=== PATIENT | male | born 1980 | race Two or more races ===

== ENCOUNTER 2016-12-08 10:38 | Emergency (ER) | payer SELFPAY ==
[~2016-12-08] VITALS: Ht 170.2 cm; Wt 74.8 kg
[2016-12-08 10:50] VITALS: BP 132/76
[2016-12-08] MEDS ORDERED: Ketorolac 30mg Inj IV ONE (11:00)
--- NOTE | 2016-12-08 12:01 | Diagnostic Imaging Report ---
Indication: Chest pain Technique: PA and lateral views of the chest. Findings: Comparison: None The bones and extra pulmonary soft tissues, cardiomediastinal silhouette, pulmonary vasculature and parenchyma, and pleural surfaces are unremarkable. IMPRESSION: Negative PA and lateral chest radiographs
[2016-12-08 12:03] LABS: BASOPHILS % (AUTO) 1.6 % (0.0-2.0); EOSINOPHILS % (AUTO) 11.4 % (0.0-3.0); LYMPHOCYTES % (AUTO) 23.4 % (20.0-45.0); MEAN CORPUSCULAR HEMOGLOBIN 29.7 PG (27.0-31.0); MEAN CORPUSCULAR HGB CONC 32.8 G/DL (32.0-36.0); MEAN CORPUSCULAR VOLUME 91 FL (80-99); MEAN PLATELET VOLUME 9.7 FL (6.5-10.1); MONOCYTES % (AUTO) 7.4 % (1.0-10.0); NEUTROPHILS % (AUTO) 56.2 % (45.0-75.0); PLATELET COUNT 177 K/UL (150-450); RED BLOOD COUNT 5.85 M/UL (4.70-6.10); RED CELL DISTRIBUTION WIDTH 12.3 % (11.6-14.8); WHITE BLOOD COUNT 9.1 K/UL (4.8-10.8)
[2016-12-08 12:13] LABS: ALANINE AMINOTRANSFERASE 14 U/L (3-41); ALBUMIN/GLOBULIN RATIO 1.4 (1.0-2.7); ANION GAP 14 (5-15); ASPARTATE AMINO TRANSFERASE 17 U/L (5-40); CALCIUM 9.3 mg/dL (8.6-10.2); CARBON DIOXIDE 27 mEQ/L (20-30); CHLORIDE 97 mEQ/L (98-107); CREATININE 1.1 mg/dL (0.7-1.2); GLOMERULAR FILTRATION RATE > 60 mL/min (>60); HEMOLYSIS 11; POTASSIUM 4.4 mEQ/L (3.4-4.9); SODIUM 138 mEQ/L (135-145); TOTAL PROTEIN 7.1 g/dL (6.6-8.7)
[2016-12-08 12:14] LABS: TROPONIN I < 0.30 ng/mL (<=0.30)
[2016-12-08] MEDS ORDERED: NKM (12:14)
[2016-12-08 12:24] LABS: CKMB < 1.5 ng/mL (< 6.7)
[2016-12-08 13:00] VITALS: BP 128/66
[2016-12-08 13:15] LABS: APPEARANCE,URINE CLEAR; KETONES,URINE NEGATIVE (NEGATIVE); LEUKOCYTE ESTERASE ,URINE NEGATIVE (NEGATIVE); NITRITE,URINE NEGATIVE (NEGATIVE); PH,URINE 6 (4.5-8.0); PROTEIN,URINE NEGATIVE (NEGATIVE); UROBILINOGEN,URINE NORMAL MG/DL (0.0-1.0)
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
[2016-12-08] MEDS ORDERED: IBUPROFEN600 MG ORAL (14:33)
[2016-12-08] MEDS ORDERED: CYCLOBENZAPRINE10 MG ORAL (14:33)
[2016-12-08] MEDS ORDERED: ACETAMINOPHEN500 M3 ORAL (14:33)
[2016-12-08 14:50] VITALS: BP 131/78
--- NOTE | 2016-12-09 15:51 | Cardiology Report ---
APPROVED REPORT EKG Measurement Heart [id number] Normal sinus rhythm possible early repolarization
== END 2016-12-08 14:52 | disposition home or self-care (01) ==
LOC: EMR 11:35
DX: S20.219A Contusion of unspecified front wall of thorax, initial encounter (principal); V47.6XXA Car passenger injured in collision with fixed or stationary object in traffic accident, initial encounter; Y93.9 Activity, unspecified; Y92.411 Interstate highway as the place of occurrence of the external cause; M47.9 Spondylosis, unspecified
CPT/HCPCS: 36415; 71020; 71275; 80053; 80300; 81003; 82550; 82553; 84484; 85025; 93005; 96360; 96374; 99284; J1885; Q9967